=== PATIENT | female | born 1990 | race Caucasian/White ===

== ENCOUNTER 2018-11-07 06:05 | Day surgery (SDC) | payer OTHER ==
[2018-11-07] MEDS ORDERED: CEFAZOLIN 2 GM/50 ML (PMX) 50 ML IVPB (07:00)
[2018-11-07] MEDS ORDERED: SOD CHLORIDE 0.9% 1,000 ML IV (07:00)
[2018-11-07] MEDS ORDERED: MIDAZOLAM 1 MG/ML 2 ML INJ (08:13)
[2018-11-07] MEDS ORDERED: FENTAnyl 50 MCG/ML VIAL (08:14)
[2018-11-07] MEDS: LIDOCAINE 1% (MPF) 30 ML INJ (08:38)
[2018-11-07] MEDS: BUPIVACAINE 0.25%/EPI (SDV) 30 ML INJ (08:38)
[2018-11-07] MEDS ORDERED: PROPOFOL 20 ML (09:00)
[2018-11-07] MEDS ORDERED: LIDOCAINE 2% (SDV) 5 ML INJ (09:00)
[2018-11-07] MEDS ORDERED: ONDANSETRON 4 MG INJ IV (09:30)
[2018-11-07] MEDS ORDERED: OXYCODONE/ACETAMINOPHEN (5/325) TAB PO ×2 (09:30)
[2018-11-07] MEDS ORDERED: hydrALAzine 20 MG INJ IV (09:30)
[2018-11-07] MEDS ORDERED: MEPERIDINE 25 MG INJ IV (09:30)
[2018-11-07] MEDS ORDERED: DIPHENHYDRAMINE 50 MG INJ IV (09:30)
[2018-11-07] MEDS ORDERED: LABETALOL HCL 20MG INJ IV (09:30)
[2018-11-07] MEDS ORDERED: MIDAZOLAM 1 MG/ML 2 ML INJ IV (09:30)
[2018-11-07] MEDS ORDERED: FENTAnyl 50 MCG/ML VIAL IV ×3 (09:30)
[2018-11-07] MEDS ORDERED: EPHEDrine SULFATE 50 MG/5 ML SYG IV (09:30)
== END 2018-11-07 10:30 | disposition home or self-care (01) ==
LOC: SDS 06:05
DX: L72.0 Epidermal cyst (principal); D23.5 Other benign neoplasm of skin of trunk; E66.01 Morbid (severe) obesity due to excess calories; L03.317 Cellulitis of buttock
CPT/HCPCS: 11406